=== PATIENT | female | born 1940 | race Caucasian/White ===

== ENCOUNTER 2022-04-07 08:07 | Day surgery (SDC) | payer MEDICARE, OTHER ==
[~2022-04-07] VITALS: Ht 157.5 cm; Wt 179.0 kg
[~2022-04-07 08:07] MED LIST changes: -GLUCOPHAGE500 MG/TAB PO; -LOPRESSOR 550 MG/TAB PO
[2022-04-07 08:50] VITALS: BP 122/56; PULSE 55; TEMP 97.5
[2022-04-07] MEDS ORDERED: LOPRESSOR 550 MG/TAB PO (08:55)
[2022-04-07] MEDS ORDERED: GLUCOPHAGE500 MG/TAB PO (08:58)
[2022-04-07 10:10] VITALS: BP 117/63; PULSE 55; TEMP 97.4
--- NOTE | 2022-04-07 10:10 | NUR ---
PATIENT ARRIVES TO ROOM 8 VIA CART. ASSIST TO CHAIR X 1. VITAL SIGNS WNL. SHE DENIES ANY PAIN OR NAUSEA. WILL CONTINUE TO MONITOR.
[2022-04-07 10:25] VITALS: BP 123/54; PULSE 56
--- NOTE | 2022-04-07 10:25 | NUR ---
PATIENT IS ALERT AND ORIENTED. VITAL SIGNS WNL. DOCTOR AT BEDSIDE. IV REMOVED. WILL CONTINUE TO MONITOR.
[2022-04-07 10:37] VITALS: BP 118/62; PULSE 56
--- NOTE | 2022-04-07 10:37 | NUR ---
PATIENT IS READY FOR DISCHARGE. INSTRUCTIONS REVIEWED WITH PATIENT AND DAUGHTER. SHE IS GETTING DRESSED, WILL DISCHARGED WHEN SHE IS READY.
== END 2022-04-07 10:39 | disposition home or self-care (01) ==
LOC: SDCO 08:07
DX: I85.10 Secondary esophageal varices without bleeding (principal); K74.60 Unspecified cirrhosis of liver; Z79.899 Other long term (current) drug therapy; R16.1 Splenomegaly, not elsewhere classified; Z79.84 Long term (current) use of oral hypoglycemic drugs
CPT/HCPCS: J2704; J7030

== ENCOUNTER → 2022-04-07 | Outpatient (CLI) | payer MEDICARE, OTHER ==
[~2022-04-07] MED LIST: ATENOLOL50 MG PO; CYMBALTA 60MG60 MG PO; FERROUS SU325 MG/TAB PO; FOLIC ACID PO; GLUCOPHAGE500 MG/TAB PO; HCTZ 25MG TAB25 MG PO; KLOR-CON 1010 MEQ PO; LOPRESSOR 550 MG/TAB PO; SYNTHROID0.075 MG/T PO; VITAMIN C500 MG PO; VITAMIN E200 I1 PO
== END ==
LOC: COL.LAB 12:56
DX: K74.60 Unspecified cirrhosis of liver (principal)